=== PATIENT | female | born 1980 | race Caucasian/White ===

== ENCOUNTER 2020-04-17 10:16 | Day surgery (SDC) | payer OTHER, SELFPAY ==
[~2020-04-17] VITALS: Ht 175.3 cm; Wt 90.7 kg
[2020-04-17] MEDS ORDERED: diphenhydrAMINE 50 MG/ML VIAL ONE (12:59)
[2020-04-17] MEDS ORDERED: MIDAZOLAM 5 MG/5 ML VIAL ONE (12:59)
[2020-04-17] MEDS ORDERED: fentaNYL citrate 0.05 MG/ML VIAL ONE (12:59)
[2020-04-17] MEDS: MIDAZOLAM 2 MG/2 ML VIAL IVP ONE (13:02)
[2020-04-17] MEDS: fentaNYL citrate 0.05 MG/ML VIAL IVP ONE (13:03)
[2020-04-17] MEDS: LIDOCAINE 2% 100 MG/5 ML UJET TP ONE (13:06)
== END 2020-04-17 13:50 | disposition home or self-care (01) ==
LOC: MDS 10:16 → MMU 10:37 → MDS 13:50
PROVIDERS: ATTEND Internal Medicine Gastroenterology
DX: K52.9 Noninfective gastroenteritis and colitis, unspecified (principal); R63.4 Abnormal weight loss; F41.9 Anxiety disorder, unspecified; Z90.49 Acquired absence of other specified parts of digestive tract; F17.210 Nicotine dependence, cigarettes, uncomplicated; F06.4 Anxiety disorder due to known physiological condition; Z79.899 Other long term (current) drug therapy; Z20.828 Contact with and (suspected) exposure to other viral communicable diseases
CPT/HCPCS: 45380; 81025; J2250; J3010; U0003; J1200

== ENCOUNTER 2023-02-07 07:48 | Emergency (ER) | payer OTHER ==
[~2023-02-07] VITALS: Ht 175.3 cm; Wt 79.4 kg
[2023-02-07 07:56] VITALS: BP 144/84; PULSE 94; RESP 22; TEMP 97.4; O2SAT 95
--- NOTE | 2023-02-07 08:06 | NUR ---
MD BECKWITH AT BEDSIDE FOR EVALUATION
[2023-02-07 08:10] VITALS: O2SAT 95
[2023-02-07] MEDS ORDERED: ALBUTEROL SULFATE/IPRATROPIU 3 ML SOL IH ONE ×2 (08:10→09:00)
[2023-02-07] MEDS ORDERED: predniSONE 20 MG TAB PO ONE (08:10)
--- NOTE | 2023-02-07 08:10 | NUR ---
42YO FEMALE PT C/O COUGH AND INCREASED SOB X2DAYS. REPORTS INTIAL ONSET X1WEEK W/ SUBJECTIVE FEVERS. MOIST NON PRODUCTIVE COUGH AND LORETTA WHEEZING NOTED. STATES GOING TO URGENT CARE W/O RELIEF AFTER TAKING RX GIVEN. DENIES V/D. PT AAOX4, RESPIRATIONS EVEN AND UNLABORED. ON SOAPSTONER. CALL LIGHT WITHIN REACH. HX: BRONCHITIS NKA
[2023-02-07 08:19] VITALS: PULSE 90; RESP 20; O2SAT 98
--- NOTE | 2023-02-07 08:21 | NUR ---
rt and lab at bedside
--- NOTE | 2023-02-07 08:22 | NUR ---
pt swabbed for covid(shirley) and flu. handed to lab
--- NOTE | 2023-02-07 08:26 | NUR ---
xray at bedside
[2023-02-07 08:37] LABS: BASOPHILS # (AUTO) 0.1 K/uL (0.00-0.22); BASOPHILS % (AUTO) 0.9 % (0.0-2.0); EOSINOPHILS # (AUTO) 0.1 K/uL (0-0.4); EOSINOPHILS % (AUTO) 1.2 % (0.0-4.0); HEMATOCRIT 38.9 % (36-48); HEMOGLOBIN 13.8 g/dL (12.0-16.0); LYMPHOCYTES # (AUTO) 3.9 K/uL (2.5-16.5); LYMPHOCYTES % (AUTO) 45.1 % (20.5-51.1); MEAN CORPUSCULAR HEMOGLOBIN 32 pg (27-31); MEAN CORPUSCULAR HGB CONC 36 g/dL (33-37); MEAN CORPUSCULAR VOLUME 90.7 fL (80-94); MONOCYTES # (AUTO) 0.5 K/uL (0.8-1.0); MONOCYTES % (AUTO) 5.3 % (1.7-9.3); NEUTROPHILS # (AUTO) 4.1 K/uL (1.8-7.7); NEUTROPHILS % (AUTO) 47.5 % (42.2-75.2); PLATELET COUNT (AUTO) 276 K/uL (140-450); RED BLOOD CELL COUNT(AUTO) 4.29 MIL/uL (4.20-5.40); RED CELL DISTRIBUTION WIDTH 12.5 % (11.6-13.7); WHITE BLOOD COUNT (AUTO) 8.7 K/uL (4.8-10.8)
[2023-02-07 08:58] LABS: ALBUMIN 3.3 g/dL (3.4-5.0); ANION GAP 17.9 (8-16); CARBON DIOXIDE 19.4 mmol/L (21-32); CREATININE 0.9 mg/dL (0.6-1.3); POTASSIUM 3.3 mmol/L (3.5-5.1); TOTAL BILIRUBIN 0.4 mg/dL (0.0-1.0)
[2023-02-07 09:08] VITALS: PULSE 81; RESP 15; O2SAT 99
[2023-02-07] MEDS ORDERED: PRED20TA5 PO (09:47)
[2023-02-07 10:15] VITALS: BP 109/72; PULSE 86; RESP 13; O2SAT 99
--- NOTE | 2023-02-07 10:15 | NUR ---
Patient discharged with v/s stable. Written and verbal after care instructions FOR BRONCHOSPASM, ACUTE BRONCHITIS AND TOBACCO given and explained. Patient alert, oriented and verbalized understanding of instructions. Ambulatory with steady gait. All questions addressed prior to discharge. ID band removed. Patient advised to follow up with PMD. Rx of DELTASONE given. Opportunity to ask questions provided and answered.
--- NOTE | 2023-02-07 10:15 | NUR ---
The patient's care was reviewed and supervised by ED Agency Nurse 9, RN, RN.
== END 2023-02-07 10:15 | disposition home or self-care (01) ==
LOC: MED 07:48
DX: J98.01 Acute bronchospasm (principal); J40 Bronchitis, not specified as acute or chronic; F17.210 Nicotine dependence, cigarettes, uncomplicated; Z20.822 Contact with and (suspected) exposure to COVID-19; Z79.899 Other long term (current) drug therapy; Z71.6 Tobacco abuse counseling
CPT/HCPCS: 36415; 71045; 80053; 85025; 87426; 87804; 93005; 94640; 99285; J7512

== ENCOUNTER 2023-12-29 17:25 | Emergency (ER) | payer OTHER ==
[~2023-12-29] VITALS: Ht 177.8 cm; Wt 81.2 kg
[~2023-12-29 17:25] MED LIST: PRED20TA5 PO
[2023-12-29 18:10] VITALS: BP 130/72; PULSE 85; RESP 20; TEMP 98; O2SAT 99
[2023-12-29 19:47] VITALS: BP 128/72; TEMP 98.1
[2023-12-29] MEDS ORDERED: predniSONE 20 MG TAB ONE (20:27)
[2023-12-29] MEDS: predniSONE 20 MG TAB PO ONE (20:29)
[2023-12-29] MEDS: ALBUTEROL 0.083% 2.5 MG/3 ML NEBU INH ONE (20:33)
[2023-12-29] MEDS: ALBUTEROL SULFATE/IPRATROPIU 3 ML SOL IH ONE (20:33)
[2023-12-29 20:39] VITALS: PULSE 69; PULSE 73; RESP 20; RESP 22; O2SAT 100
[2023-12-29] MEDS ORDERED: PRED20TA5 PO (20:48)
== END 2023-12-29 21:02 | disposition home or self-care (01) ==
LOC: MED 17:25
DX: R06.02 Shortness of breath (principal); R05.9 Cough, unspecified; R50.9 Fever, unspecified; F17.200 Nicotine dependence, unspecified, uncomplicated; Z79.899 Other long term (current) drug therapy; Z90.49 Acquired absence of other specified parts of digestive tract
CPT/HCPCS: 71045; 94640; 99283; J7512; J7613

== ENCOUNTER 2024-04-17 15:49 | Emergency (ER) | payer OTHER ==
[~2024-04-17] VITALS: Ht 175.3 cm; Wt 84.8 kg
[2024-04-17 15:52] VITALS: BP 116/72; PULSE 80; RESP 18; TEMP 98.8; O2SAT 98
[2024-04-17 17:31] LABS: BASOPHILS % (AUTO) 0.1 % (0.0-2.0); EOSINOPHILS # (AUTO) 0.1 K/uL (0-0.4); EOSINOPHILS % (AUTO) 1.9 % (0.0-4.0); HEMATOCRIT 39.2 % (36-48); HEMOGLOBIN 13.5 g/dL (12.0-16.0); LYMPHOCYTES # (AUTO) 2.5 K/uL (2.5-16.5); LYMPHOCYTES % (AUTO) 34.7 % (20.5-51.1); MEAN CORPUSCULAR HEMOGLOBIN 32 pg (27-31); MEAN CORPUSCULAR HGB CONC 35 g/dL (33-37); MEAN CORPUSCULAR VOLUME 92.6 fL (80-94); MONOCYTES # (AUTO) 0.5 K/uL (0.8-1.0); MONOCYTES % (AUTO) 7.3 % (1.7-9.3); NEUTROPHILS # (AUTO) 4.1 K/uL (1.8-7.7); PLATELET COUNT (AUTO) 269 K/uL (140-450); RED BLOOD CELL COUNT(AUTO) 4.23 MIL/uL (4.20-5.40); RED CELL DISTRIBUTION WIDTH 12.7 % (11.6-13.7); WHITE BLOOD COUNT (AUTO) 7.3 K/uL (4.8-10.8)
[2024-04-17 17:47] LABS: ANION GAP 12.4 (8-16); CALCIUM 8.3 mg/dL (8.5-10.1); CREATININE 0.9 mg/dL (0.6-1.3); POTASSIUM 3.4 mmol/L (3.5-5.1)
[2024-04-17] MEDS: FAMOTIDINE 20 MG TAB PO ONE (17:49)
[2024-04-17] MEDS: ACETAMINOPHEN 325 MG TAB PO ONE (17:50)
[2024-04-17] MEDS: ALUMINUM HYD/MAG/SIMETHICONE 30 ML UDC PO ONE (17:54)
[2024-04-17 17:55] LABS: ALANINE AMINOTRANSFERASE 21 U/L (12-78); ALBUMIN 3.3 g/dL (3.4-5.0); ALKALINE PHOSPHATASE 80 U/L (50-136); ASPARTATE AMINOTRANSFERASE 16 U/L (15-37); BILIRUBIN,DIRECT 0.1 mg/dL (0.0-0.3); LIPASE 53 U/L (16-77); TOTAL BILIRUBIN 0.2 mg/dL (0.0-1.0); TOTAL PROTEIN, SERUM 6.4 g/dL (6.4-8.2)
[2024-04-17] MEDS ORDERED: OMEP40EC24 PO (17:58)
[2024-04-17 18:31] VITALS: BP 136/82; PULSE 74; RESP 16; TEMP 98.8; O2SAT 99
== END 2024-04-17 18:31 | disposition home or self-care (01) ==
LOC: MED 15:49
DX: K20.90 Esophagitis, unspecified without bleeding (principal); R07.89 Other chest pain; R11.0 Nausea; R06.02 Shortness of breath; F17.200 Nicotine dependence, unspecified, uncomplicated; Z79.899 Other long term (current) drug therapy; Z90.49 Acquired absence of other specified parts of digestive tract; Z98.890 Other specified postprocedural states
CPT/HCPCS: 36415; 71045; 80048; 80076; 83690; 84484; 85025; 93005; 99285